=== PATIENT | female | born 1985 | race Caucasian/White ===

== ENCOUNTER 2020-10-22 12:29 | Emergency (ER) | payer OTHER ==
[~2020-10-22 12:29] MED LIST: NORCO 5-325 TA1 EAC1 PO; PHENERGAN25 M1 PO
[2020-10-22 13:53] LABS: BILIRUBIN NEGATIVE (NEGATIVE); BLOOD NEGATIVE Ery/uL (NEGATIVE); CLARITY CLEAR (CLEAR); COLOR YELLOW (YELLOW); GLUCOSE (U) NORMAL (NORMAL); LEUKOCYTES NEGATIVE Leu/uL (NEGATIVE); NITRITE NEGATIVE (NEGATIVE); PROTEIN NEGATIVE (NEGATIVE); SPECIFIC GRAVITY >=1.030 (1.001-1.030); UROBILINOGEN 0.2 mg/dL (0.2-1.0)
[2020-10-22 13:58] LABS: AMPHETAMINES NEGATIVE (NEGATIVE); BARBITURATES NEGATIVE (NEGATIVE); ECSTASY (MDMA) NEGATIVE (NEGATIVE); MARIJUANA (THC) NEGATIVE (NEGATIVE); METHADONE NEGATIVE (NEGATIVE); OPIATES NEGATIVE (NEGATIVE); OXYCODONE NEGATIVE (NEGATIVE)
[2020-10-22 14:11] LABS: BASOPHIL 0.5 % (0-2); EOSINOPHIL 2.5 % (0-5); HCT 37.2 % (37.0-47.0); HGB 12.4 g/dl (12.5-16.0); LYMPHOCYTE 22.3 % (15-48); MCHC 33.3 g/dL (32.0-36.0); MCV 89.9 fL (78.0-100.0); MONOCYTE 7.6 % (0-12); MPV 10.6 fL (6.0-9.5); NEUTROPHIL 66.7 % (41-80); NRBC 0; PLT 252 K/uL (150-400); RBC 4.14 M/uL (4.20-5.40); RDW 12.7 % (11.5-14.0); WBC 10.6 K/uL (4.0-10.5)
[2020-10-22 14:37] LABS: ALBUMIN 3.5 g/dL (3.4-5.0); BILIRUBIN - TOTAL 0.2 mg/dL (0.2-1.0); BUN/CREAT RATIO (CALC) 23.4 RATIO; CREATININE 0.64 mg/dL (0.51-0.95); GLOBULIN (CALCULATION) 3.2 g/dL; POTASSIUM 4.1 mmol/L (3.5-5.1); TOTAL PROTEIN 6.7 g/dL (6.4-8.2)
[2020-10-22] MEDS ORDERED: ATARAX25 MG PO (15:02)
== END 2020-10-22 15:36 | disposition home or self-care (01) ==
LOC: FER 12:29
PROVIDERS: Nurse Practitioner Family
DX: F41.1 Generalized anxiety disorder (principal); F17.210 Nicotine dependence, cigarettes, uncomplicated; Z98.890 Other specified postprocedural states; Z88.1 Allergy status to other antibiotic agents; Z86.59 Personal history of other mental and behavioral disorders
CPT/HCPCS: 36415; 80053; 80305; 81003; 85025; 99283

== ENCOUNTER 2022-02-08 12:24 | Emergency (ER) | payer OTHER ==
[~2022-02-08 12:24] MED LIST changes: +ATARAX25 MG PO
[2022-02-08 13:27] LABS: BASOPHIL 0.7 % (0-2); EOSINOPHIL 1.8 % (0-5); HCT 39.4 % (37.0-47.0); LYMPHOCYTE 27.2 % (15-48); MCH 30.2 pg (25.0-31.0); MCV 91.4 fL (78.0-100.0); MPV 9.8 fL (6.0-9.5); NEUTROPHIL 63.1 % (41-80); NRBC 0; PLT 294 K/uL (150-400); RBC 4.31 M/uL (4.20-5.40); RDW 13.7 % (11.5-14.0); WBC 8.3 K/uL (4.0-10.5)
[2022-02-08 13:28] LABS: BILIRUBIN NEGATIVE (NEGATIVE); BLOOD NEGATIVE Ery/uL (NEGATIVE); CLARITY CLEAR (CLEAR); COLOR YELLOW (YELLOW); GLUCOSE (U) NORMAL (NORMAL); LEUKOCYTES 1+ Leu/uL (NEGATIVE); NITRITE POSITIVE (NEGATIVE); PROTEIN NEGATIVE (NEGATIVE); UROBILINOGEN 0.2 mg/dL (0.2-1.0)
[2022-02-08 13:35] LABS: BACTERIA 3+; URINARY WBC TNTC
[2022-02-08 13:47] LABS: BUN/CREAT RATIO (CALC) 17.9 RATIO; CREATININE 0.67 mg/dL (0.51-0.95); POTASSIUM 3.8 mmol/L (3.5-5.1)
[2022-02-08] MEDS ORDERED: PYRIDIUM100 MG PO (16:02)
[2022-02-08] MEDS ORDERED: NORCO 5-325 TA1 EACH PO (16:02)
[2022-02-08] MEDS ORDERED: BACTRIM DS TAB1 EAC1 PO (16:02)
== END 2022-02-08 16:10 | disposition home or self-care (01) ==
LOC: FER 12:24
PROVIDERS: Nurse Practitioner Family
DX: N39.0 Urinary tract infection, site not specified (principal); Z88.1 Allergy status to other antibiotic agents; Z28.310 Unvaccinated for COVID-19
CPT/HCPCS: 36415; 80048; 81001; 85025; 87076; 87088; 87186